=== PATIENT | female | born 1965 | race Caucasian/White ===

== ENCOUNTER 2023-08-20 09:08 | Day surgery (SDC) | payer BC ==
[~2023-08-20] VITALS: Ht 162.6 cm; Wt 75.7 kg
[~2023-08-20 09:08] MED LIST: CYMB1CAP5 PO; FAMO40TA3 PO; LOSA50TA28 PO; NS 1,000 ML IV ONE; OMEP40CA4 PO; SUCR1ORA PO
[2023-08-20] MEDS ORDERED: fentaNYL 100 MCG/2 ML INJECTION As Ordered ONE (09:50)
[2023-08-20 10:45] VITALS: TEMP 97.9
[2023-08-20 11:03] VITALS: BP 117/63; O2SAT 98
[2023-08-20] MEDS ORDERED: propofoL 200 MG/20 ML VIAL As Ordered ONE (11:21)
== END 2023-08-20 11:15 | disposition home or self-care (01) ==
LOC: M OPP 09:08
PROVIDERS: ATTEND Internal Medicine Gastroenterology
DX: Z12.11 Encounter for screening for malignant neoplasm of colon (principal); K64.0 First degree hemorrhoids; K22.89 Other specified disease of esophagus; K44.9 Diaphragmatic hernia without obstruction or gangrene; R12 Heartburn; Z87.891 Personal history of nicotine dependence; Z79.899 Other long term (current) drug therapy
CPT/HCPCS: 43239; 45378; 88305; J3010